=== PATIENT | male | born 1955 | race Caucasian/White ===

== ENCOUNTER 2023-09-04 04:43 | Day surgery (SDC) | payer OTHER ==
[2023-09-03 10:14] VITALS: BMI 33.0
[2023-09-04 11:55] VITALS: TEMP 97.5
[2023-09-04 12:21] VITALS: RESP 17
[2023-09-04 12:23] VITALS: BP 129/54; PULSE 63
[2023-09-04 12:51] LABS: BASO % 0.5 % (0-2.0); EOS % 2.1 % (0-4.5); HEMATOCRIT 38.3 % (35.4-49); HEMOGLOBIN 12.7 GM/dL (11.7-16.9); LYMPH % 10.5 % (8-40); MCHC 33.2 g/dl (32.0-35.9); MEAN CELL VOLUME 87.4 fl (80-96); MEAN PLT VOLUME 8.2 fl (7.5-11.1); NEUT % 76.9 % (42.8-82.8); PLATELET COUNT 163 10^3/uL (134-434); RBC 4.38 M/mm3 (4.00-5.60); RDW 15.4 % (11.9-15.9); RETICULOCYTES 0.92 % (0.5-1.5); WHITE BLOOD COUNT 5.9 K/mm3 (4.0-10.0)
[2023-09-04 13:26] LABS: POTASSIUM 4.2 mmol/L (3.5-5.1)
[2023-09-04 13:28] LABS: ALBUMIN 3.5 g/dl (3.4-5.0); BLOOD UREA NITROGEN 12.4 mg/dL (7-18); CALCIUM 9.1 mg/dL (8.5-10.1)
[2023-09-04 13:31] LABS: CREATININE 0.8 mg/dL (0.55-1.3)
[2023-09-04 13:33] LABS: BILIRUBIN,TOTAL 0.6 mg/dL (0.2-1); TOT PROT 7.1 g/dl (6.4-8.2)
[2023-09-06 19:06] LABS: IG A QN SERUM. 365 mg/dL (61-437)
== END 2023-09-04 12:54 | disposition home or self-care (01) ==
LOC: JASU-ENDO 04:43
PROVIDERS: ATTEND Internal Medicine Gastroenterology
PROC: 0DB98ZX Excision of Duodenum, Via Natural or Artificial Opening Endoscopic, Diagnostic (ICD-10-PCS; 2023-09-04)
PROC: 0DB68ZX Excision of Stomach, Via Natural or Artificial Opening Endoscopic, Diagnostic (ICD-10-PCS; 2023-09-04)
PROC: 0DB48ZX Excision of Esophagogastric Junction, Via Natural or Artificial Opening Endoscopic, Diagnostic (ICD-10-PCS; 2023-09-04)
PROC: 0DBH8ZX Excision of Cecum, Via Natural or Artificial Opening Endoscopic, Diagnostic (ICD-10-PCS; principal; 2023-09-04 11:00)
DX: Z12.11 Encounter for screening for malignant neoplasm of colon (principal); D50.9 Iron deficiency anemia, unspecified; D12.0 Benign neoplasm of cecum; K57.30 Diverticulosis of large intestine without perforation or abscess without bleeding; K29.50 Unspecified chronic gastritis without bleeding; K44.9 Diaphragmatic hernia without obstruction or gangrene; K21.00 Gastro-esophageal reflux disease with esophagitis, without bleeding
CPT/HCPCS: 36415; 80053; 82728; 82784; 83540; 83550; 84155; 84165; 85025; 85045; 86140; 86334